=== PATIENT | female | born 2000 | race Two or more races ===

== ENCOUNTER 2024-10-04 19:30 | Emergency (ER) | payer OTHER ==
[~2024-10-04] VITALS: Ht 167.6 cm; Wt 147.4 kg
[2024-10-04 19:38] VITALS: BP 98/60; O2SAT 100
[2024-10-04 22:10] LABS: HEMATOCRIT 39.7 % (36.0-45.00); HEMOGLOBIN 13.5 g/dL (12.0-15.00); MEAN CELL VOLUME 84.3 fL (80.00-100.00); MEAN CORPUSCULAR HEMOGLOBIN 28.6 pg (27.00-32.0); PLATELET COUNT 218 K/uL (150-450); RED BLOOD COUNT 4.71 M/uL (4.00-6.00); RED CELL DISTRIBUTION WIDTH 14.5 % (11.5-14.5)
[2024-10-05 00:25] LABS: URINE APPEARANCE Clear; URINE BILIRRUBIN Negative (NEGATIVE); URINE BLOOD Negative; URINE COLOR Yellow; URINE GLUCOSE Negative (NEGATIVE); URINE KETONE Trace (NEGATIVE); URINE LEUKOCYTE Trace; URINE NITRATE Negative; URINE PROTEIN Trace (NEGATIVE)
[2024-10-05 00:29] LABS: URINE BACTERIA 428.3 uL (0.0-1933); URINE EPITHELIAL CELLS 10.9 uL (0.0-38.8); URINE RBC 4.4 uL (0.0-20.8)
[2024-10-05] MEDS ORDERED: ZYNCOF 20-400120 ML PO (01:48)
[2024-10-05] MEDS ORDERED: ZYRTEC10 M3 PO (01:48)
== END 2024-10-05 02:02 ==
LOC: ER 19:32
PROVIDERS: Preventive Medicine Public Health & General Preventive Medicine
DX: O99.519 Diseases of the respiratory system complicating pregnancy, unspecified trimester (principal); J06.9 Acute upper respiratory infection, unspecified; Z20.822 Contact with and (suspected) exposure to COVID-19